=== PATIENT | female | born 1970 | race Caucasian/White ===

== ENCOUNTER 2018-08-29 08:11 | Day surgery (SDC) | payer OTHER ==
[2018-08-29] MEDS ORDERED: MIDAZOLAM 1 MG/ML 2 ML INJ ×3 (10:13)
[2018-08-29] MEDS ORDERED: FENTAnyl 50 MCG/ML VIAL (10:13)
== END 2018-08-29 16:26 | disposition home or self-care (01) ==
LOC: GIL 08:11
DX: R19.4 Change in bowel habit (principal); K29.50 Unspecified chronic gastritis without bleeding; K64.8 Other hemorrhoids; K21.9 Gastro-esophageal reflux disease without esophagitis
CPT/HCPCS: 43239; 84703; 88305; 88312